=== PATIENT | female | born 1960 | race Caucasian/White ===

== ENCOUNTER 2017-08-18 16:21 | Emergency (ER) | payer MEDICAID ==
[2017-08-18 17:12] LABS: BASOPHILS % (AUTO) 0.4 %; EOSINOPHILS # (AUTO) 0.1 10^3/uL (0.0-0.7); EOSINOPHILS % (AUTO) 1.7 %; INR 1.3 (0.8-1.2); LYMPHOCYTES % (AUTO) 18.3 %; MEAN CORPUSCULAR HEMOGLOBIN 30.3 pg (27.0-31.0); MEAN CORPUSCULAR HGB CONC 32.1 g/dL (32.0-36.0); MEAN CORPUSCULAR VOLUME 94.5 fL (81.0-99.0); MEAN PLATELET VOLUME 8.8 fL (7.9-10.8); MONOCYTES # (AUTO) 0.5 10^3/uL (0.0-1.0); MONOCYTES % (AUTO) 9.4 %; NEUTROPHILS # (AUTO) 3.7 10^3/uL (1.5-6.6); NEUTROPHILS % (AUTO) 70.2 %; PLT - PLATELET COUNT 110 10^3/uL (130-450); PT - PROTHROMBIN TIME 14.6 secs (9.9-12.6); RED BLOOD COUNT 3.62 10^6/uL (4.20-5.40); RED CELL DISTRIBUTION WIDTH 16.1 % (12.0-15.0); WHITE BLOOD COUNT 5.3 x10^3/uL (4.8-10.8)
[2017-08-18 17:20] LABS: ALBUMIN 3.1 g/dL (3.2-5.5); ALBUMIN/GLOBULIN RATIO 0.6 (1.0-2.2); BILIRUBIN,TOTAL 2.2 mg/dL (0.2-1.0); CALCIUM 9.1 mg/dL (8.5-10.3); CREATININE 1.7 mg/dL (0.4-1.0); TOTAL PROTEIN 7.9 g/dL (6.7-8.2)
[2017-08-18] MEDS ORDERED: SODIUM CHLORIDE 0.9% 1,000 ML IV ONE ×2 (17:28)
--- NOTE | 2017-08-18 17:28 | ED Physician Documentation ---
History of Present Illness - Stated complaint Stated Complaint: NAUSEA/ABD PX/BLOODY STOOL - Chief complaint Chief Complaint: Abd Pain - History obtained from History obtained from: Patient, Family - History of Present Illness Timing: How many weeks ago (2) Pain level max: 4 Pain level now: 3 Improved by: nothing Worsened by: nothing - Additonal information Additional information: Patient is a 57-year-old female who presents to the emergency department complaining of intermittent abdominal pain for the past 2 weeks as well as intermittent small amounts of bright red blood in the stool, now fairly consistent. She recently moved here from [place]. Does not have a doctor. She is diabetic and is not checking her blood sugars at home but does take Lantus. Has not had any vomiting. Also has a history of alcoholic cirrhosis of the liver, states had a negative EGD and colonoscopy 4 months ago in [place]. She states she has varices and they talked about banding but decided not to in [place]. Review of Systems Ten Systems: 10 systems reviewed and negative Constitutional: denies: Fever, Chills Ears: denies: Ear pain Nose: denies: Rhinorrhea / runny nose, Congestion Throat: denies: Sore throat Cardiac: denies: Chest pain / pressure Respiratory: denies: Cough GI: reports: Bloody / black stool. denies: Nausea, Vomiting, Diarrhea Skin: denies: Rash Musculoskeletal: denies: Neck pain, Back pain Neurologic: denies: Headache PD PAST MEDICAL HISTORY - Past Medical History Past Medical History: Yes Endocrine/Autoimmune: Type 2 diabetes GI: Cirrhosis - Past Surgical History Past Surgical History: No - Present Medications Home Medications: Ambulatory Orders Medication Instructions Recorded Confirmed Atorvastatin [Lipitor] 20 mg PO QPM 08/18/17 08/18/17 Furosemide 40 mg PO DAILY 08/18/17 08/18/17 Insulin Glargine [Lantus Solostar] 15 units SUBQ DAILY 08/18/17 08/18/17 Insulin Lispro [Humalog Kwikpen units SUBQ TIDWM 08/18/17 U-100] Lactulose 15 gm PO DAILY 08/18/17 08/18/17 Magnesium Oxide [Magnesium] 400 mg PO BID 08/18/17 08/18/17 Multivitamin [Theragran] 1 tab PO DAILY 08/18/17 08/18/17 Potassium Chloride [K-Dur] 20 meq PO DAILY 08/18/17 08/18/17 Promethazine [Phenergan] 25 mg PO Q8H PRN 08/18/17 08/18/17 Spironolactone 100 mg PO DAILY 08/18/17 08/18/17 Ursodiol 300 mg PO BID 08/18/17 08/18/17 hydrOXYzine HCl [Hydroxyzine HCl] 50 mg PO Q6H PRN 08/18/17 08/18/17 rifAXIMin [Xifaxan] 550 mg PO BID 08/18/17 08/18/17 - Allergies Allergies/Adverse Reactions: Allergies Allergy/AdvReac Type Severity Reaction Status Date / Time No Known Drug Allergies Allergy Verified 08/18/17 16:25 - Social History Does the pt smoke?: No Smoking Status: Never smoker Does the pt drink ETOH?: No Does the pt have substance abuse?: No - Immunizations Immunizations are current?: Yes PD ED PE NORMAL - Vitals Vital signs reviewed: Yes - General General: Alert and oriented X 3, No acute distress, Well developed/nourished - HEENT HEENT: PERRL, Moist mucous membranes - Neck Neck: Supple, no meningeal sign - Cardiac Cardiac: RRR, Strong equal pulses - Respiratory Respiratory: No respiratory distress, Clear bilaterally - Abdomen Abdomen: Normal bowel sounds, Soft, Non tender, Other (mild distention) - Rectal Rectal: Other (normal rectal exam, hemoccult negative.) - Back Back: No CVA TTP, No spinal TTP - Derm Derm: Warm and dry, No rash - Extremities Extremities: No calf tenderness / cord - Neuro Neuro: Alert and oriented X 3 - Psych Psych: Normal mood, Normal affect Results - Vitals Vitals: Vital Signs - 24 hr 08/18/17 08/18/17 08/18/17 16:24 19:19 20:25 Temperature 36.9 C 36.9 C 36.5 C Heart Rate 96 78 85 Respiratory 16 16 16 Rate Blood Pressure 136/73 H 116/77 119/79 O2 Saturation 99 98 98 Oxygen O2 Source Room air - Labs Labs: Laboratory Tests 08/18/17 08/18/17 08/18/17 16:53 16:53 16:53 WBC 5.3 RBC 3.62 L Hgb 11.0 L Hct 34.2 L MCV 94.5 MCH 30.3 MCHC 32.1 RDW 16.1 H Plt Count 110 L MPV 8.8 Neut # 3.7 Lymph # 1.0 L [place] # 0.5 Eos # 0.1 Baso # 0.0 Absolute Nucleated RBC 0.00 Nucleated RBC % 0.0 PT 14.6 H INR 1.3 H APTT 33.8 H VBG pH VBG pCO2 VBG pO2 VBG HCO3 VBG Total CO2 VBG O2 Saturation VBG Base Excess Sodium 116 L* Potassium 4.8 Chloride 84 L Carbon Dioxide 16 L Anion Gap 16.0 H BUN 30 H Creatinine 1.7 H Estimated GFR (MDRD) 31 L Glucose 948 H* Calcium 9.1 Total Bilirubin 2.2 H AST 33 ALT 15 Alkaline Phosphatase 79 Total Protein 7.9 Albumin 3.1 L Globulin 4.8 H Albumin/Globulin Ratio 0.6 L Lipase 76 H Serum Ketones Blood Type Antibody Screen KELVIN, IgG Specific KELVIN, Polyspecific KELVIN, C3d Specific 08/18/17 08/18/17 08/18/17 16:53 16:53 17:30 WBC RBC Hgb Hct MCV MCH MCHC RDW Plt Count MPV Neut # Lymph # [place] # Eos # Baso # Absolute Nucleated RBC Nucleated RBC % PT INR APTT VBG pH 7.373 VBG pCO2 30.8 L VBG pO2 62.3 H VBG HCO3 17.5 L VBG Total CO2 18.5 L VBG O2 Saturation 91.0 H VBG Base Excess -6.6 L Sodium Potassium Chloride Carbon Dioxide Anion Gap BUN Creatinine Estimated GFR (MDRD) Glucose Calcium Total Bilirubin AST ALT Alkaline Phosphatase Total Protein Albumin Globulin Albumin/Globulin Ratio Lipase Serum Ketones NEGATIVE Blood Type A NEGATIVE Antibody Screen POSITIVE KELVIN, IgG Specific POSITIVE KELVIN, Polyspecific POSITIVE KELVIN, C3d Specific NEGATIVE PD MEDICAL DECISION MAKING - ED course Complexity details: reviewed results, re-evaluated patient, considered differential, d/w patient, d/w family, 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 Given IV fluids and started on insulin drip. She also is reporting rectal/GI bleeding, unclear if it is bright or dark depending on if you talk to the patient or her family. She does have a history of varices. Given Protonix as well as Rocephin. Will transfer her to [facility] in [place] where GI is available to deal with the varices. Dr. Jeronimo (field assembly supervisor) graciously accepts in transfer ([id number]). This document was made in part using voice recognition software. While efforts are made to proofread this document, sound alike and grammatical errors may occur. 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
[2017-08-18] MEDS ORDERED: cefTRIAXone 1 GM VIAL IVP STA (17:35)
[2017-08-18] MEDS ORDERED: PANTOPRAZOLE 40 MG VIAL IVP STA (17:35)
[2017-08-18 17:36] LABS: VBG BASE EXCESS -6.6 mmol/L (-2 - +2); VBG PCO2 30.8 mmHg (41-51); VBG PH 7.373 (7.31-7.41); VBG PO2 62.3 mmHg (25-47); VBG TOTAL CO2 18.5 mmol/L (24-29)
[2017-08-18] MEDS ORDERED: INSULIN REGULAR HUMAN 100 UNIT in SODIUM CHLORIDE 0.9% 100ML 99 ML IV STA (18:04)
[2017-08-18 20:32] VITALS: BP 119/79
== END 2017-08-18 20:33 | disposition short-term general hospital (02) ==
LOC: ED 16:21
DX: K92.1 Melena (principal); E11.65 Type 2 diabetes mellitus with hyperglycemia; Z79.4 Long term (current) use of insulin; E87.1 Hypo-osmolality and hyponatremia; K92.2 Gastrointestinal hemorrhage, unspecified; K70.31 Alcoholic cirrhosis of liver with ascites
CPT/HCPCS: 36415; 80053; 82009; 82803; 83690; 85025; 85610; 85730; 86850; 86870; 86880; 86900; 86901; 96361; 96374; 99284; J1815

== ENCOUNTER 2017-08-18 20:35 | Outpatient (CLI) | payer MEDICAID | END 2017-08-18 20:36 | disposition short-term general hospital (02) | LOC: EMS 20:35 | PROVIDERS: ATTEND Surgery | DX: K92.2 Gastrointestinal hemorrhage, unspecified (principal); K74.60 Unspecified cirrhosis of liver | CPT/HCPCS: A0170; A0425; A0426 ==

== ENCOUNTER 2017-09-03 09:02 | Outpatient (CLI) | payer MEDICAID ==
[2017-09-03 13:09] LABS: BASOPHILS % (AUTO) 0.8 %; EOSINOPHILS # (AUTO) 0.2 10^3/uL (0.0-0.7); EOSINOPHILS % (AUTO) 3.4 %; HGB - HEMOGLOBIN 11.4 g/dL (12.0-16.0); LYMPHOCYTES # (AUTO) 1.4 10^3/uL (1.5-3.5); MEAN CORPUSCULAR HEMOGLOBIN 30.8 pg (27.0-31.0); MEAN CORPUSCULAR VOLUME 90.5 fL (81.0-99.0); MEAN PLATELET VOLUME 8.3 fL (7.9-10.8); MONOCYTES # (AUTO) 0.5 10^3/uL (0.0-1.0); NEUTROPHILS # (AUTO) 2.5 10^3/uL (1.5-6.6); NEUTROPHILS % (AUTO) 54.8 %; PLT - PLATELET COUNT 108 10^3/uL (130-450); RED CELL DISTRIBUTION WIDTH 16.5 % (12.0-15.0); WHITE BLOOD COUNT 4.6 x10^3/uL (4.8-10.8)
[2017-09-03 13:41] LABS: HB2 TOTAL 12.1 g/dL; HEMOGLOBIN A1C 1.09 g/dL; HEMOGLOBIN A1C % 10.4 % (4.6-6.2)
[2017-09-03 13:45] LABS: ALBUMIN 3.3 g/dL (3.2-5.5); ALBUMIN/GLOBULIN RATIO 0.7 (1.0-2.2); ALKALINE PHOSPHATASE 67 IU/L (42-121); ALT ALANINE AMINOTRANSFERASE 30 IU/L (10-60); AST ASPARTATE AMINOTRANSFERASE 68 IU/L (10-42); BILIRUBIN,TOTAL 2.7 mg/dL (0.2-1.0); BUN - BLOOD UREA NITROGEN 15 mg/dL (6-20); CALCIUM 9.2 mg/dL (8.5-10.3); CARBON DIOXIDE - CO2 19 mmol/L (21-32); CHLORIDE 100 mmol/L (101-111); CHOL/HDL RATIO 3.3 (<4.4); CHOLESTEROL 122 mg/dL; CREATININE 1.2 mg/dL (0.4-1.0); GFR - MDRD 46 (>89); GLUCOSE 203 mg/dL (70-100); HDL CHOLESTEROL 37 mg/dL; LDL CHOLESTEROL,CALCULATED 63 mg/dL; LDL/HDL RATIO 1.7 (<4.4); SODIUM 131 mmol/L (135-145); TOTAL PROTEIN 8.1 g/dL (6.7-8.2); VLDL CHOLESTEROL 22 mg/dL
== END 2017-09-03 09:03 | disposition home or self-care (01) ==
LOC: LAB.N 09:02
PROVIDERS: ATTEND Physician Assistant Medical
DX: Z00.00 Encounter for general adult medical examination without abnormal findings (principal); K70.30 Alcoholic cirrhosis of liver without ascites; E11.9 Type 2 diabetes mellitus without complications; Z86.59 Personal history of other mental and behavioral disorders
CPT/HCPCS: 36415; 80053; 80061; 82043; 82306; 83036; 83721; 84443; 85025